=== PATIENT | female | born 1995 | race Caucasian/White ===

== ENCOUNTER 2024-03-26 19:18 | Inpatient (IN) ==
--- OUTSIDE RECORDS SUMMARY | 2024-03-26 19:23 | External Medical Summary | Summary of Care ---
Author Name Unknown Organization [facility] Address [address] [facility] [place] [address] Phone [phone] Care Team Providers Care Home Health Nurse Licensed Practical Name Role Phone Ashia Mtz MD Primary Care Provider Reason for Visit * Reason Comments Return Visit Encounter Details Date Type Department Care Team (Late st Contact Info) Description 03/25/2024 11:00 AM EDT Office Visit Gynecology/Obstetric s Adarsh Benitez [address] [place] [address] Greer Santamaria CRNP [address] [place] [address] High-risk in third trimester*; Family history of congenital hearing loss; Diet controlled gestational diabetes mellitus (GDM) in third trimester; Pre-eclampsia in third trimester Allergies Active Allergy Reactions Criticality Noted Date Comments Pollen Other (Please comment) High 04/15/2015 Itchy eyes, sneezing documented as of this encounter (statuses as of 03/25/2024) Medications Medication Sig Dispensed Refills Start Date End Date Status 6.75-0.2 MG Oral Tablet Take by mouth. Active OneTouch [place] Pak Expressio Flex System w/Device KitIndications:Di et controlled gestational diabetes mellitus (GDM) in third trimester Use to test blood sugars 4 times daily (fasting, 1 hour after breakfast, lunch, and dinner) 1 Kit 02/12/2024 Active Additional Information Patient not taking.Reported on 02/24/2024 OneTouch Verio In Vitro Strip (Glucose Blood)Indications :Diet controlled gestational diabetes mellitus (GDM) in third trimester Use to test blood sugars 4 times daily (fasting, 1 hour after breakfast, lunch, and dinner) 125 Strip 6 02/12/2024 Active Additional Information Patient not taking.Reported on 02/24/2024 OneTouch Delica Lancets 30GIndications:Di et controlled gestational diabetes mellitus (GDM) in third trimester Use to test blood sugars 4 times daily (fasting, 1 hour after breakfast, lunch, and dinner) 200 Each 6 02/12/2024 Active Additional Information Patient not taking.Reported on 02/24/2024 Blood Pressure KitIndications:El evated blood pressure reading Check twice a day. Call office if 160 or higher over 100 or higher (either number) 1 Kit 03/09/2024 Active NIFEdipine ER Osmotic Release 30 MG Oral Tablet Extended Release 24 Hour (Procardia XL) 03/23/2024 4 Discontinued documented as of this encounter (statuses as of 03/25/2024) Active Problems Problem Noted Date Diagnosed Date Preeclampsia 02/24/2024 Overview: 02/24/2024: Initial BP 144/98, repeat BP 138/88. Pre-eclampsia labs ordered. Reviewed pre-eclampsia warning signs. 03/09/24 BP 158/90, ruled in for gestational hypertension. +1 proteinuria, PreE labs ordered. Reviewed preE warning signs. Recommended MFM referral, pt "will think about it" Growth scan q4 wks, weekly labs, twice weekly NSTs, deliver 37 wks 03/11/24: pt declines twice weekly NSTs or weekly BPP, weekly labs, MFM referral preE diagnosed at [facility] L&D on 03/22 with elevated BP and +proteinuria, rx'd nifedipine Component Latest Ref Rng 03/09/2024 BUN 6 - 20 mg/dL 6 Creatinine 0.5 - 1.0 mg/dL 0.4 (L) Estimated Glomerular Filtration Rate >=60 mL/min >90 Sodium 135 - 146 mmol/L 136 Potassium 3.5 - 5.1 mmol/L 4.0 Chloride 98 - 107 mmol/L 103 CO2 22 - 32 mmol/L 19 (L) Anion Gap 7 - 15 mmol/L 14 Glucose 70 - 120 mg/dL 111 Albumin 3.8 - 5.0 g/dL 3.5 (L) AST 10 - 35 U/L 21 Alkaline Phosphatase 35 - 130 U/L 122 Bilirubin, Total <=1.2 mg/dL 0.5 Calcium 8.4 - 10.2 mg/dL 9.0 Protein 6.0 - 8.3 g/dL 5.7 (L) ALT 10 - 35 U/L 27 WBC 4.00 - 10.80 K/uL 9.21 RBC 3.85 - 5.15 M/uL 4.13 HGB 12.0 - 15.3 g/dL 12.4 HCT 36.0 - 45.2 % 36.4 MCV 81.5 - 97.5 fL 88.1 MCH 27.0 - 34.0 pg 30.0 MCHC 32.0 - 36.0 g/dL 34.1 RDW 11.5 - 15.5 % 13.1 PLT 140 - 400 K/uL 144 MPV 6.6 - 11.1 fL 13.2 Protein/ Creatinine Ratio, Urine <150 mg/g 196 (H) Protein, Random Urine mg/dL 36 Creatinine, Random Urine mg/dL 184 Legend: (L) Low (H) High GDM (gestational diabetes mellitus) 02/10/2024 Overview: Dx 29w - declines MFM referral, declines checking blood sugars A1c 03/09/24 - 5.4% Normal growth scan 33 wks High-risk 09/16/2023 Family history of congenital hearing loss 2022 Overview: Pt's niece and nephew Elevated blood pressure, situational 01/13/2022 Overview: While on estrogen containing OCP, resolved with switch to progesterone only Estimated Date of Delivery Comme nts Yes 04/27/2024 Based on Ultraso und documented as of this encounter (statuses as of 03/25/2024) Resolved Problems Problem Noted Date Diagnosed Date Resolved Date Non compliance with medical treatment 03/11/2024 03/25/2024 documented as of this encounter (statuses as of 03/25/2024) Immunizations Name Administration Dates Next Due HPV Vaccine, 4-Valent 07/13/2015,12/29/2014 HPV Vaccine, 9-Valent 09/25/2017 Meningococcal Conjugate Vaccine (Menactra/Menveo ) 12/29/2014,02/28/2009 PPD 07/22/2015,07/13/2015 Seasonal Influenza, PF, 6 M & above, IM , (FluLaval or Fluzone) 09/10/2020 TDAP (age 10 and older)(Boostrix) 02/01/2024, TDAP, Age 7 and older, IM (Adacel) 02/28/2009 Varicella Vaccine (Chicken Pox) 12/29/2014,04/21 documented as of this encounter Social History Tobacco Use Types Packs/Day Years Used Date Smoking Tobacco: Never Smokeless Tobacco: Never Alcohol Use Standard Drinks/Week Comments No 0 (1 standard drink = 0.6 oz pur e alcohol) PHQ-2 Answer Date Recorded PHQ Adult Total Score 0 02/01/2024 Hunger Vital Sign Answer Date Recorded Within the past 12 months, y ou worried that your food would run out before you got the money to buy more. Never true 12/07/19 24 Within the past 12 months, t he food you bought just didn't last and you didn't have money to get more. Never true 12/07/2023 [place] Depression Scale Answer Date Recorded [place] Depression Scale Total 3 02/01/2024 The thought of harming myself has occurred to me . Never 02/01/2024 Estimated Date of Delivery Comme nts Yes 04/27/2024 Based on Ultraso und Sex and Gender Information Value Date Recorded Sex Assigned at Female 09/02/2023 8:35 PM EST Gender Identity Female 09/02/2023 8:35 PM EST Sexual Orientation Straight 09/02/2023 8: 35 PM EST Job Start Date Occupation Industry Not on file Not on file Not on file documented as of this encounter Last Filed Vital Signs Vital Sign Reading Time Taken Comments Blood Pressure 158/98 03/25/2024 11:51 AM EDT Pulse - - Temperature - - Respiratory Rate - - Oxygen Saturation - - Inhaled Oxygen Concentration - - Weight 82.1 kg (181 lb) 03/25/2024 10:59 AM EDT Height - - Body Mass Index 33.11 02/01/2024 9:52 AM EDT documented in this encounter Progress Notes * Kathleen Martinez MED ASSIST - 03/25/2024 10:59 AM EDT 35w2d Denies vaginal bleeding/rom + movements + x1 contraction No concerns Rechecked patients BP to calibrate at home BP machine. 158/98 in office, 158/109 BP machine Told patient I would discuss BP recheck with LEAH Daniel Patient left office before able to discuss with provider. * Greer Santamaria CRNP - 03/25/2024 10:55 AM EDT 35w2d Seen on L&D on 03/22 with elevated home BPs (max systolic 166, max diastolic 106). Improved withprocardia, which was prescribed for daily use. Normal platelets and LFTs. Ruled in for pre-eclampsia with mild features based on +proteinuria in the hospital. Received 2 doses of betamethasone. While on L&D, OB physician recommended MFM consult and deliver at 37 weeks as long as she did not develop severe features. She had a normal growth scan and BPP 05/19 earlier this week. She is scheduled for a video visit with MFM next Thursday. Tearful today - has significant anxiety when coming for appointments, feels a lot is out of her control. We discussed her diagnoses and why the different testing/monitoring is advised, and the rationale behind the MFM consult. Reviewed that pre-eclampsia can become severe/eclampsia very quickly, com promising conditions for both mother and baby. Reviewed recommendation of delivery at 37 weeks, to decrease risks to both mother and baby (including eclampsia, stroke, hemorrhage, ). She is very hesitant to be induced, and would prefer expectant management if she and baby are stable. She is taking the Procardia - concerned that since it is also administered to prevent pre-term labor, it could prevent spontaneous labor. Discussed option of labetalol instead - would need more frequent dosing, but safe in . Would need to monitor growth, which is already being done. She plans to attend her remote MFM visit next week. She prefers a weekly BPP instead of twice weekly NSTs. Recommend twice weekly BP checks, weekly labs - will plan to repeat lab work at her visit early next week. Continue regular movement counts. Continue twice daily BP checks at home, and contact on- call provider with systolic readings >/=160, diastolic >/=100; new PERDUE, vision changes, epigastric pain, swelling; decreased FM, bleeding, ctx, LOF. Pt left office prior to this provider being made aware of her repeat BP. [place] Text sent to OB supervisor type disk quality control Dr Chandler, inquiring as to whether her medication dose should be increased. Per MD, switch to non-extended release 30 mg BID. See T/E for medication adjustment. LEAH Zimmerman documented in this encounter Plan of Treatment Upcoming Encounters Date Type Department Care Team (Late st Contact Info) Description 03/29/2024 2:30 PM EDT Office Visit Gynecology/Obstetrics [facility] [address] [place] [address] Greer Santamaria CRNP [address] [place] [address] 03/29/2024 2:45 PM EDT Telemedicine Directory Operator Obstetrics Maternal Medicine, [place] [address] [facility] [address] [place] [address] Eduardo Garcia CRNP [address] [facility] [address] [place] [address] 03/29/2024 3:30 PM EDT Imaging Radiology [facility] 2nd Floor, [place] [address] [place] [address] Scheduled Orders Name Type Priority Associated Diagnoses Orde r Schedule HEPATIC FUNCTION PANEL Lab Routine High-risk in third trimester Pre-eclampsia in third trimester Expected: 03/29/2024 (Approximate), Expires: 03/25/2025 CREATININE Lab Routine High-risk in third trimester Pre-eclampsia in third trimester Expected: 03/29/2024 (Approximate), Expires: 03/25/2025 CBC Lab Routine High-risk in third trimester Pre-eclampsia in third trimester Expected: 03/29/2024 (Approximate), Expires: 03/25/2025 US BPP W/O NON-STRESS TEST Medical Imaging Routine High-risk in third trimester Pre-eclampsia in third trimester Expected: 03/29/2024 (Approximate), Expires: 04/24/2025 Health Maintenance Due Date Last Done Comments COVID-19 Vaccine ( season) 2023 Influenza Vaccine (FLU shot) (Season Ended) 2024 09/10/2020 Depression Screening 01/31/2025 02/01/2024 GFR 03/22/2025 03/22/2024, 02/10, 02/24/2024 Pap Smear 09/16/2026 09/16/2023, 12/25/2020 DTaP,Tdap,and Td Vaccines (9 - Td or Tdap) 01/31/2034 02/01/2024, 09/10/2020, 02/28/2009, Additional history exists Hepatitis B Completed 03/16/1998, 10/12, 1997 MENINGOCOCCAL (MENACTRA/MENVEO) Completed 12/29/2014, 02/28/2009 GARDASIL-HPV IMMUNIZATION SERIES Completed 09/25/2017, 07/13/2015, 12/29/2014 Gonorrhea / Chlamydia Screen Discontinued 09/16/2023, 12/25/2020 Pneumococcal Vaccine: Pediatrics (0 to 5 Years) and At-Risk Patients (6 to 64 Years) Aged Out No longer eligible based on patient's age to complete this topic documented as of this encounter Medical Devices Not on filedocumented as of this encounter Procedures Procedure Name Priority Date/Time Associated Diagnosis Comments URINALYSIS, POINT OF CARE (ENTER/EDIT) Routine 03/25/2024 High-risk in third trimester Diet controlled gestational diabetes mellitus (GDM) in third trimester Pre-eclampsia in third trimester documented in this encounter Results * URINALYSIS, POINT OF CARE (ENTER/EDIT) (03/25/2024) Color, Urine Yellow Yellow or Light Yellow Clarity, Urine Clear Clear Glucose, Urine Negative Negative mg/dL Bilirubin, Urine Small Negative Ketone, Urine Negative Negative mg/dL Specific Cactus, Urine 1.030 1.003 - 1.030 Blood, Urine Trace-intact Negative pH, Urine 6.5 5.0 - 7.5 units Protein, Urine 100 Negative mg/dL Urobilinogen, Urine 0.2 0.2 - 1.0 mg/dL Nitrite, Urine Negative Negative Esterase, Urine Negative Negative Urine 03/25/2024 Greer LYNN LAB POINT O F CARE TEST ENTER/EDIT ORDERABLES documented in this encounter Visit Diagnoses Diagnosis High-risk in third trimester- Primary Family history of congenital hearing loss Family history of deafness or hearing loss Diet controlled gestational diabetes mellitus (GDM) in third trimester Pre-eclampsia in third trimester Mild or unspecified pre-eclampsia, antepartum documented in this encounter Care Teams Home Health Nurse Licensed Practical Relationship Specialty Start Date End Date Ashia Mtz MD [address] [place] [address] PCP - General Internal Medicine 01/13/22 documented as of this encounter
--- OUTSIDE RECORDS SUMMARY | 2024-03-26 19:23 | External Medical Summary | Summary of Care ---
Author Name Unknown Organization [facility] Address [address] [place] [address] Phone [phone] Care Team Providers Care Production Laborer Name Role Phone Ashia Mtz MD Primary Care Provider Reason for Visit * Reason Onset Date Comments Follow Up 03/25/2024 Encounter Details Date Type Department Care Team (Late st Contact Info) Description 03/25/2024 Telephone Gynecology/Obstetrics [facility] [address] [place] [address] BackGreer staton CRNP [address] [facility] [place] [address] Follow Up Allergies Active Allergy Reactions Criticality Noted Date Comments Pollen Other (Please comment) High 04/15/2015 Itchy eyes, sneezing documented as of this encounter (statuses as of 03/25/2024) Medications Medication Sig Dispensed Refills Start Date End Date Status 6.75-0.2 MG Oral Tablet Take by mouth. Active Optherionuch Verio Flex System w/Device KitIndications:D iet controlled gestational diabetes mellitus (GDM) in third trimester Use to test blood sugars 4 times daily (fasting, 1 hour after breakfast, lunch, and dinner) 1 Kit 02/12/2024 Active Additional Information Patient not taking.Reported on 02/24/2024 OneTouch Verio In Vitro Strip (Glucose Blood)Indication s:Diet controlled gestational diabetes mellitus (GDM) in third trimester Use to test blood sugars 4 times daily (fasting, 1 hour after breakfast, lunch, and dinner) 125 Strip 6 02/12/2024 Active Additional Information Patient not taking.Reported on 02/24/2024 SuzannaBassemjoy Henriquez Lancets 30GIndications:D iet controlled gestational diabetes mellitus (GDM) in third trimester Use to test blood sugars 4 times daily (fasting, 1 hour after breakfast, lunch, and dinner) 200 Each 6 02/12/2024 Active Additional Information Patient not taking.Reported on 02/24/2024 Blood Pressure KitIndications:E levated blood pressure reading Check twice a day. Call office if 160 or higher over 100 or higher (either number) 1 Kit 03/09/2024 Active NIFEdipine 10 MG Oral Capsule Take 3 Capsules by mouth in the morning and 3 Capsules before bedtime. 180 Capsule 03/25/2024 Active NIFEdipine ER Osmotic Release 30 MG Oral Tablet Extended Release 24 Hour (Procardia XL) 03/23/2024 03/25/20 24 Discontinued documented as of this encounter (statuses [...] labs, MFM referral preE diagnosed at [facility] L&D on 03/22 with elevated BP [...] money to get more. Never true 12/07/2023 [place] Depression Scale Answer Date Recorded [place] Depression Scale Total 3 02/01/2024 The thought [...] on file documented as of this encounter Miscellaneous Notes * Telephone Encounter - Greer Santamaria CRNP - 03/25/2024 12:24 PM EDT Pt returned call; discussed recommendation for BID dosing of procardia. Rx to pharmacy, pt agreeable. Encouraged to contact the office with any new concerns. LEAH Zimmerman * Telephone Encounter - Greer Santamaria CRNP - 03/25/2024 12:21 PM EDT Called pt to discuss adjustment to medication, no answer. Left generic VM on voicemail with triage phone # and notified that I would also send her a Hive guard unlimited message. LEAH Zimmerman documented in this encounter Plan of Treatment Upcoming Encounters Date Type Department Care Team (Late st Contact Info) Description 03/29/2024 2:30 PM EDT Office Visit Gynecology/Obstetrics [facility] [address] [facility] [place] [address] Greer Santamaria CRNP [address] [facility] [place] [address] 03/29/2024 2:45 PM EDT Telemedicine Fine Chemicals Operator Obstetrics Maternal Medicine, [place] [address] [facility] [address] [place] [address] Eduardo Garcia CRNP [address] [facility] [address] [place] [address] 03/29/2024 3:30 PM EDT Imaging Radiology [facility] [address] [facility] [place] [address] Health Maintenance Due Date Last Done Comments COVID-19 Vaccine (2022- season) 2023 Influenza Vaccine (FLU shot) (Season [...] Not on filedocumented as of this encounter Care Teams Production Laborer Relationship Specialty Start Date End Date Ashia Mtz MD [address] [place] [address] PCP - General Internal Medicine 01/13/22 documented as of this encounter
--- OUTSIDE RECORDS SUMMARY | 2024-03-26 19:24 | External Medical Summary | Summary of Care ---
Author Name Unknown Organization [facility] Address [address] [facility] [place] [address] Phone [phone] Care Team Providers Care Scheduling Specialist Name Role Phone Ashia Mtz MD Primary Care Provider Encounter Details Date Type Department Care Team (Late st Contact Info) Description 03/24/2024 Orders Only Gynecology/Obstetrics [facility] [address] [place] [address] BackGreer staton CRNP [address] [place] [address] Allergies Active Allergy Reactions Criticality Noted Date Comments Pollen Other (Please comment) High 04/15/2015 Itchy eyes, sneezing documented as of this encounter (statuses as of 03/24/2024) Medications Medication Sig Dispensed Refills Start Date End Date Status 6.75-0.2 MG Oral Tablet Take by mouth. Active OneTouch Verio Flex System w/Device KitIndications:Diet controlled gestational diabetes mellitus (GDM) in third trimester Use to test blood sugars 4 times daily (fasting, 1 hour after breakfast, lunch, and dinner) 1 Kit 02/12/2024 Active Additional Information Patient not taking.Reported on 02/24/2024 OneTouch Verio In Vitro Strip (Glucose Blood)Indications:D iet controlled gestational diabetes mellitus (GDM) in third trimester Use to test blood sugars 4 times daily (fasting, 1 hour after breakfast, lunch, and dinner) 125 Strip 6 02/12/2024 Active Additional Information Patient not taking.Reported on 02/24/2024 SuzannaShraavn Henriquez Lancets 30GIndications:Diet controlled gestational diabetes mellitus (GDM) in third trimester Use to test blood sugars 4 times daily (fasting, 1 hour after breakfast, lunch, and dinner) 200 Each 6 02/12/2024 Active Additional Information Patient not taking.Reported on 02/24/2024 Blood Pressure KitIndications:Elev ated blood pressure reading Check twice a day. Call office if 160 or higher over 100 or higher (either number) 1 Kit 03/09/2024 Active documented as of this encounter (statuses as of 03/24/2024) Active Problems Problem Noted Date Diagnosed Date Non compliance with medical treatment 03/11/2024 Gestational hypertension 02/24/2024 Overview: 02/24/2024: Initial BP 144/98, repeat [...] or weekly BPP, weekly labs, MFM referral Component Latest Ref Rng 03/09/2024 BUN 6 [...] as of this encounter (statuses as of 03/24/2024) Immunizations Name Administration Dates Next Due HPV [...] money to get more. Never true 12/07/2023 [place] Depression Scale Answer Date Recorded [place] Depression Scale Total 3 02/01/2024 The thought [...] on file documented as of this encounter Plan of Treatment Upcoming Encounters Date Type Department Care Team (Late st Contact Info) Description 03/25/2024 11:15 AM EDT Office Visit Gynecology/Obstetrics [facility] [address] [place] [address] Greer Santamaria CRNP [address] [facility] [place] [address] 03/29/2024 2:45 PM EDT Telemedicine Sap Administrator Obstetrics Maternal Medicine, [place] [address] [facility] [address] [place] [address] Eduardo Garcia CRNP [address] [facility] [address] [place] [address] Health Maintenance Due Date Last Done Comments [...] Procedure Name Priority Date/Time Associated Diagnosis Comments HEPATITIS C ANTIBODY Routine 03/22/2024 documented in this encounter Results * HEPATITIS C ANTIBODY (03/22/2024) Blood Venous blood specimen / Unknown 03/22/2024 History Per Patient LAB BLOOD ORDERABLES OUTSIDE LAB (SEE SCANNED REPORT) documented in this encounter Care Teams Scheduling Specialist Relationship Specialty Start Date End Date Ashia Mtz MD [address] [place] [address] PCP - General Internal Medicine 01/13/22 documented as of this encounter
--- OUTSIDE RECORDS SUMMARY | 2024-03-26 19:24 | External Medical Summary | Summary of Care ---
Author Name Unknown Organization [facility] Address [address] [place] [address] Phone [phone] Care Team Providers Care Group Tester Name Role Phone Ashia Mtz MD Primary Care Provider Reason for Referral * Evaluate & Treat - Unlimited Visits (Within 3 days (urgent)) - Authorized Specialty Diagnoses / Procedures Referred By Alexa vickers Referred To Contact Obstetrics/Gynecology / Maternal Medicine Diagnoses Pre-eclampsia in third trimester Diet controlled gestational diabetes mellitus (GDM) in third trimester High-risk in third trimester Gestational hypertension, third trimester Greer Santamaria CRNP [address] [place] [address] Referral ID Status Reason Start Date Expiration Date Visits Requested Visits Authorized [id number] Authorized Specialty Services Required 03/24/2024 999 999 Question Answer Referral Priority Within 3 days (urgent) Has the patient had a viability scan? Yes Date performed 2023 Location performed Radiology Reason for referral Diabetes, Hypertension Diabetes type Gestational Hypertension type Gestational, Pre-eclampsia Where should this appointment be scheduled? [facility] Comments /Para: LMP: Patient's last menstrual period was 07/16/2023. Patient is . NEELAM: 04/27/2024, by Ultrasound Pre-Gravid BMI: 28.34 Reason for Visit * Reason Onset Date Comments Follow Up 03/24/2024 Encounter Details Date Type Department Care Team (Late st Contact Info) Description 03/24/2024 Telephone Gynecology/Obstetrics Adarsh Benitez [address] [place] [address] Back[place], LEAH Segovia [address] [place] [address] Follow Up Allergies Active Allergy Reactions Criticality [...] not taking.Reported on 02/24/2024 OneTouch Delica Lancets 30GIndications:Diet controlled gestational diabetes mellitus (GDM) [...] MFM referral, declines checking blood sugars A1c 05/29/24 - 5.4% Normal growth scan 33 wks [...] money to get more. Never true 12/07/2023 [place] Depression Scale Answer Date Recorded [place] Depression Scale Total 3 02/01/2024 The thought [...] Telephone Encounter - Greer Santamaria CRNP - 03/24/2024 8:18 AM EDT Received L&D notes from 03/22, pt there with elevated BPs which responded to Procardia. Elevatedp/c ratio and was diagnosed with pre-eclampsia with mild features. Plans follow up appt in office tomorrow. Dr Durbin recommended MFM consult, which I agree with. I am placing this referral. Would advise thatshe at the very least consider attending telemed visit with them. I have to order the MFM U/S to place the referral. LEAH Zimmerman documented in this encounter Plan of Treatment Upcoming Encounters Date Type Department Care Team (Late st Contact Info) Description 03/25/2024 11:15 AM EDT Office Visit Gynecology/Obstetrics [facility] [address] [place] [address] Greer Santamaria CRNP [address] [place] [address] 03/29/2024 2:45 PM EDT Telemedicine Avionics Systems Engineer Obstetrics Maternal Medicine, [place] [address] [facility] [address] [place] [address] Eduardo Garcia CRNP [address] [facility] [address] [place] [address] Scheduled Orders Name Type Priority Associated Diagnoses Orde r Schedule MFM US MATERNAL 1ST FETUS Medical Imaging Routine Pre-eclampsia in third trimester Diet controlled gestational diabetes mellitus (GDM) in third trimester High-risk in third trimester Gestational hypertension, third trimester Other specified related conditions, third trimester Expected: 03/24/2024, Expires: 04/23/2025 Scheduled Referrals Name Type Priority Associated Diagnoses Orde r Schedule MATERNAL MEDICINE REFERRAL OP Referral Within 3 days (urgent) Pre-eclampsia in third trimester Diet controlled gestational diabetes mellitus (GDM) in third trimester High-risk in third trimester Gestational hypertension, third trimester Ordered: 03/24/2024 Health Maintenance Due Date Last Done Comments [...] Not on filedocumented as of this encounter Visit Diagnoses Diagnosis Pre-eclampsia in third trimester- Primary Mild or unspecified pre-eclampsia, antepartum Diet controlled gestational diabetes mellitus (GDM) in third trimester High-risk in third trimester Gestational hypertension, third trimester Other specified related conditions, third trimester documented in this encounter Care Teams Group Tester Relationship Specialty Start Date End Date Ashia Mtz MD [address] [place] [address] PCP - General Internal Medicine 01/13/22 documented as of this encounter
--- OUTSIDE RECORDS SUMMARY | 2024-03-26 19:24 | External Medical Summary | Summary of Care ---
Author Name Unknown Organization [facility] Address [address] [place] [place] [place] [address] Phone [phone] Care Team Providers Care Hotel Front Desk Agent Name Role Phone Ashia Mtz MD Primary Care Provider Encounter Details Date Type Department Care Team (Late st Contact Info) Description 03/24/2024 Orders Only Gynecology/Obstetrics [facility] [address] [place] [address] BackGreer staton CRNP [address] [place] [address] Allergies Active Allergy Reactions Criticality Noted Date [...] Additional Information Patient not taking.Reported on 02/24/2024 SuzannaShravan Henriquez Lancets 30GIndications:Diet controlled gestational diabetes mellitus [...] money to get more. Never true 12/07/2023 [place] Depression Scale Answer Date Recorded [place] Depression Scale Total 3 02/01/2024 The thought [...] 03/25/2024 11:15 AM EDT Office Visit Gynecology/Obstetrics [facility] [address] [place] [address] Greer Santamaria CRNP [address] [facility] [place] [address] 03/29/2024 2:45 PM EDT Telemedicine Traffic Recorder Obstetrics Maternal Medicine, [place] [address] [facility] [address] [place] [address] Eduardo Garcia CRNP [address] [facility] [address] [place] [address] Health Maintenance Due Date Last Done Comments [...] Procedure Name Priority Date/Time Associated Diagnosis Comments HIV ANTIGEN & ANTIBODY SCREEN W/ CONFIRMATION Routine 02/20/2024 documented in this encounter Results * HIV ANTIGEN & ANTIBODY SCREEN W/ CONFIRMATION (02/20/2024) Blood Venous blood specimen / Unknown 02/20/2024 Mehul Durbin MD LAB BLOOD ORDERABLES OUTSIDE LAB (SEE SCANNED REPORT) documented in this encounter Care Teams Hotel Front Desk Agent Relationship Specialty Start Date End Date Ashia Mtz MD [address] [place] [address] PCP - General Internal Medicine 01/13/22 documented as of this encounter
[2024-03-26] MEDS: LACTATED RINGER'S 1,000 ML IV SCH (19:38)
[2024-03-26] MEDS: hydrALAZINE HCL 20 MG/ML VIAL IV STA (20:06)
--- NOTE | 2024-03-26 20:17 | Anesthesiology Consultation ---
Date of Service March 26, 2024 Assessment & Plan Chart Review Chart Review: Acceptable Risk for Surgery and Patient NOT seen in Pre Admission Testing Consults Requested none ASA [id number] Proposed Anesthesia Anesthesia Type: Spinal Risk / Benefits Reviewed With: PT / POA / Parent / Guardian, Accepts Plan and Informed Consent Obtained History Surgery Operation Date: 03/26/24 19:50 Proposed Procedures p Section in LD - Mehul Durbin MD Height/Weight Height: 5 ft 2 in Weight: 86.636 kg Allergies Allergy/AdvReac Type Severity Reaction Status Date / Time No Known Allergies Allergy Unverified 03/22/24 17:39 Medications Home Medications Medication Instructions Recorded Confirmed Last Taken aspirin 81 mg chewable tablet 81 mg PO DAILY 03/22/24 03/26/24 03/26/24 14:00 nifedipine 30 mg tablet,extended 30 mg PO DAILY #14 tabs 03/22/24 03/26/24 03/25/24 22:00 release 24 hr (Procardia XL) vits no.124-ferrous fum 1 tab PO DAILY 03/22/24 03/26/24 03/25/24 22:00 27 mg iron-folic acid 800 mcg tablet ( Vitamin) Active Medications Generic Name Dose Route Start Last Admin Trade Name Freq PRN Reason Stop Dose Admin Cefazolin Sodium 2,000 mg in 15 mls @ 3.75 mls/min 03/26/24 20:00 03/26/24 20:20 Ancef 2000mg IV 03/26/24 21:00 3.75 mls/min PREOP SHELTON Administration Protocol NPO Date Last Intake of Fluids: 03/26/24 Time Last Intake of Fluids: 18:30 Date Last Intake of Solids: 03/26/24 Time Last Intake of Solids: 17:30 Past Medical History Medical History Congenital hearing loss Family history Gestational hypertension Gestational hypertension Gestational diabetes Exercise / Class Metabolic Activity 1 > 8 Run/Swim/Ski/Tennis Past Family History Family History Other No known health problems Past Surgical History Surgical History [place] teeth removed Past Anesthesia History No Hx of Anesthesia Complications and No Family Hx of Anesthesia Complications History of PONV No Hx of PONV and No Hx of Motion Sickness Social History tobacco type: pipe Hx Alcohol Use: No Hx Substance Use: No Review of Systems ROS Unobtainable: All systems reviewed & are unremarkable except as noted in HPI & below Physical Exam Vital Signs Last Vital Signs Temp 36.9 C 03/26/24 19:42 Pulse 126 H 03/26/24 20:07 Resp 18 03/26/24 19:42 BP 161/98 H 03/26/24 20:07 ENMT Mouth: no TMJ abnormality Thyromental Distance: > or= 3.5 Finger Breadths Mallampati Class: III Neck normal visual inspection and trachea midline; neck extension not limited Respiratory normal respiratory effort Auscultation: lungs clear to auscultation bilaterally Cardiovascular Rate/Rhythm: regular rate and regular rhythm Heart Sounds: no murmur Musculoskeletal Spine: normal cervical ROM Extremities: full ROM of extremities Neurologic moves all extremities Psychiatric Orientation: alert and oriented x 3
[2024-03-26] MEDS: ceFAZolin 2000MG 2,000 MG/15 ML SYR IV SCH (20:20)
[2024-03-26] MEDS ORDERED: MoRPHine SULFATE PF 1 MG/ML 10 ML AMP/VIAL ONE (20:21)
[2024-03-26] MEDS ORDERED: fentaNYL citrate PF 100 MCG/2 ML VIAL ONE (20:21)
[2024-03-26 20:25] LABS: Basophils # (auto) 0.04 K/uL (0.00-0.20); Basophils % (auto) 0.4 %; Eosinophils # (auto) 0.05 K/uL (0.00-0.50); Eosinophils % (auto) 0.5 %; Hematocrit (blood only) 31.8 % (37.0-47.0); Immature Granulocytes # (auto) 0.11 K/uL (0.01-0.20); Immature Granulocytes % (auto) 1.1 %; Lymphocytes # (auto) 2.17 K/uL (1.20-3.40); Lymphocytes % (auto) 21.6 %; Mean Corpuscular Hemoglobin 29.9 pg (25.0-34.0); Mean Corpuscular Hgb Conc 34.6 g/dL (32.0-36.0); Mean Corpuscular Volume 86.4 fL (80.0-100.0); Mean Platelet Volume 13.1 fL (9.4-12.4); Monocytes # (auto) 1.17 K/uL (0.11-0.59); Monocytes % (auto) 11.6 %; Neutrophils # (auto) 6.51 K/uL (1.40-6.50); Neutrophils % (auto) 64.8 %; Platelet Count 184 K/uL (130-400); RDW Coefficient of Variation 12.8 % (11.5-14.5); RDW Standard Deviation 39.8 fL (36.4-46.3); Red Blood Count 3.68 M/uL (4.20-5.40); White Blood Count 10.05 K/ul (4.8-10.8)
[2024-03-26] MEDS: CITRIC ACID/SODIUM CITRATE 15 ML UDC ONE (20:48)
[2024-03-26 20:50] LABS: Fibrinogen 298 mg/dl (184-400); INR 0.9 (0.9-1.1); Prothrombin Time 10.2 Seconds (9.0-12.0)
[2024-03-26] MEDS ORDERED: ePHEDrine sulfate 50 MG/ML AMP IV PRN (20:52)
[2024-03-26] MEDS ORDERED: NALBUPHINE HCL 5 MG in SYRINGE 0 ML IV PRN (20:52)
[2024-03-26] MEDS ORDERED: HYDROmorphone INJ 0.5 MG/0.5 ML SYR IV PRN (20:52)
[2024-03-26] MEDS ORDERED: NALOXONE HCL 1 MG in SODIUM CHLORIDE 0.9% 1,000 ML IV PRN (20:52)
[2024-03-26] MEDS ORDERED: LACTATED RINGER'S 500 ML IV PRN (20:52)
[2024-03-26] MEDS ORDERED: DROPERIDOL 5 MG/2 ML VIAL IV PRN (20:52)
[2024-03-26] MEDS ORDERED: ONDANSETRON INJ 2 MG/ML 2 ML VIAL IV PRN (20:52)
[2024-03-26] MEDS ORDERED: NALOXONE HCL 0.08 MG in SYRINGE 1.8 ML IV PRN (20:52)
[2024-03-26] MEDS ORDERED: PROMETHAZINE HCL 6.25 MG in SODIUM CHLORIDE 0.9% 50 ML IV PRN (20:52)
[2024-03-26] MEDS ORDERED: NALOXONE HCL 0.4 MG/1 ML VIAL/CARP IV PRN (20:52)
[2024-03-26] MEDS ORDERED: diphenhydrAMINE 50 MG/ML VIAL IV PRN (20:52)
[2024-03-26] MEDS ORDERED: MEPERIDINE HCL 25 MG/ML CARP/VIAL IV PRN (20:52)
[2024-03-26] MEDS ORDERED: METOCLOPRAMIDE HCL 20 MG in SODIUM CHLORIDE 0.9% 50 ML IV PRN (20:52)
[2024-03-26] MEDS ORDERED: NO NARCOTICS OR SEDATIVES SCH (21:00)
[2024-03-26] MEDS ORDERED: DC INTRASPINAL MORPHINE SCH (21:00)
[2024-03-26] MEDS ORDERED: KETOROLAC 30 MG/ML VIAL ONE (21:07)
[2024-03-26] MEDS ORDERED: ePHEDrine sulfate 50 MG/5 ML SYR ONE (21:07)
[2024-03-26] MEDS ORDERED: PHENYLEPHRINE 100MCG/ML 10ML SYR IV ONE (21:07)
[2024-03-26] MEDS ORDERED: GLYCOPYRROLATE 0.2 MG/ML VIAL ONE (21:07)
[2024-03-26] MEDS ORDERED: ONDANSETRON INJ 2 MG/ML 2 ML VIAL ONE ×2 (21:07)
[2024-03-26] MEDS ORDERED: DEXAMETHASONE SOD INJ 4 MG/ML VIAL ONE (21:07)
[2024-03-26] MEDS ORDERED: OXYTOCIN 10 UNITS/ML VIAL ONE (21:07)
[2024-03-26] MEDS ORDERED: HYDROCORTISONE ACETATE 25 MG SUPP PR PRN (21:44)
[2024-03-26] MEDS ORDERED: SENNA 8.6 MG TAB PO PRN (21:44)
[2024-03-26] MEDS ORDERED: MAGNESIUM HYDROXIDE SUSP 30 ML UDC PO PRN (21:44)
[2024-03-26] MEDS ORDERED: BENZOCAINE 20% SPRY 85 APPLN/85 GM CAN EXT PRN (21:44)
[2024-03-26 21:45] LABS: Cord Venous Blood PCO2 90 mmHg (30.4-57.2); Cord Venous Blood PO2 < 20 mmHg (14.1-43.3); Cord Venous Blood pH < 7.00 (7.20-7.44); O2 Saturation Cord Venous Bld < 60.0 % (<68)
--- NOTE | 2024-03-26 21:54 | Operative Report ---
Post Operative Report Pre & Post Diagnosis Operation Date: 03/26/24 19:50 <No data on this case meets the specified criteria> I identified the patient and participated in the time-out.: Yes Procedure section Operation Date: 03/26/24 19:50 <No data on this case meets the specified criteria> Surgeon Mehul Durbin MD Biology Instructor Renata Hebert RN Estimated Blood Loss 917 Findings Consistent with Post-Op Diagnosis Bleeding from the vagina unchanged prior to section. Hysterotomy showed abruption of the placenta. Cord gases are obtained. Inspection of the uterus showed [place] a uterus. Ovaries and tubes and rest of the abdominal pelvic exam was unremarkable. Fluids IVF; 2100Ml Urine 100ml QBL; 917ml Specimens placenta and cord gasses Drains none Anesthesia Type Spinal Complications none Indications preeclampsia placenta abruption Description of Procedure Patient brought to the operating room Prepped and draped in normal sterile fashion in dorsal supine position with a leftward tilt. Time out is performed. Patient is identified by name and date of . Allergy and antibiotics and reviewed and confirmed. Skin check is performed to see if anesthesia is adequate A Pfannenstiel incision is made and carried out to the fascia with a scalpel. Fascia is incised in the midline extended laterally on both sides with Solis scissors. Rochelle's were used to grab the superior part of the fascial incision and the rectus abdominis muscle dissected with Solis scissors.. Same procedure was performed on the lower section of the fascia. The rectus muscle is then in the midline and the peritoneum identified, tented up and entered sharply with the Metzenbaum scissors. The peritoneal incision was then extended superiorly and inferiorly with good visualization of the bladder. An Khris retractor was then inserted to provide better visualization and retraction. Vesicouterine peritoneum was identified, grasped with pickups and entered sharply with Metzenbaum scissors. The incision was then extended laterally and the bladder flap created with Metzenbaum scissors. The lower uterine segment incision was performed in a transverse fashion with a scalpel. Uterine incision was then extended laterally with the bandage scissors. Amniotomy is performed. Amniotic fluid is clear. The infant's head was delivered atraumatically. There is no nuchal cord which is easily reduced Nose and mouth suctioned with the bulb suction. Immediate cord clamping is performed and is handed over to the waiting pediatric team. Cord blood and gases obtained The placenta is then removed manually the uterus is exteriorized and cleared of all clots and debris. Uterine incision it repaired with 0-Vicryl in a locking fashion. A second layer of 0-Vicryl is used to obtain excellent hemostasis. Uterus is placed back into the abdominal cavity. The bladder flap was repaired in a running fashion with plain suture. Copious amount of irrigation was used to irrigate the abdomen. Gutters were cleared of all clots and debris . Hemostasis was obtained. The Khris retractor is removed as well as sponges or instruments in the abdomen. The peritoneum was identified and closed in a running fashion using plain suture. The rectus abdominis muscle was examined to ensure there no bleeding. The rectus abdominis muscle was approximated loosely using plain suture in a [id number] manner. Once again hemostasis is confirmed. The fascia was grasped with Trisha's and closed in a running fashion. Both fascial layers are closed together using 0-Vicryl suture. Subcutaneous space is irrigated and hemostasis was confirmed. Subcutaneous space is approximated with plain suture. Skin is closed with mary alice. The patient tolerated procedure well sponge just labs needle counts were correct x2 patient is sent to recovery in stable condition I attest to the content of the Intraoperative Record and any orders documented therein. Any exceptions are noted below. Biology Instructor was necessary for retraction and manipulation of instruments in order to provide for a safe operation
[2024-03-26] MEDS: OXYTOCIN 30 UNITS/LR 1,003 ML IV SCH (23:50)
[2024-03-27] MEDS: miSOPROStoL 200 MCG TAB ONE (00:23)
--- NOTE | 2024-03-27 01:54 | Anesthesiology Progress Note ---
Date of Service March 27, 2024 Anesthesia Post Procedure Vital Signs Vital Signs: Temp Pulse Pulse Resp BP BP Pulse Ox 03/27/24 01:00 18 95 03/27/24 01:00 86 18 147/88 H 95 03/26/24 23:45 105 H 98 03/26/24 23:41 88 156/86 H 03/26/24 23:40 36.7 C 94 H 20 156/86 H 97 03/26/24 23:40 18 97 03/26/24 23:40 20 03/26/24 23:40 101 H 90 03/26/24 23:39 102 H 94 03/26/24 23:35 101 H 98 03/26/24 23:33 89 149/79 H 03/26/24 23:30 99 H 97 03/26/24 23:25 94 H 96 03/26/24 23:24 98 H 93 03/26/24 23:20 95 H 97 03/26/24 23:19 97 H 93 03/26/24 23:15 96 H 96 03/26/24 23:13 85 141/81 H 03/26/24 23:10 20 03/26/24 23:10 98 H 94 03/26/24 23:05 99 H 98 03/26/24 23:00 109 H 94 03/26/24 22:59 110 H 94 03/26/24 22:55 95 H 99 03/26/24 22:53 108 H 90 03/26/24 22:50 99 H 03/26/24 22:50 94 H 145/90 H 98 03/26/24 22:47 101 H 90 03/26/24 22:45 101 H 97 03/26/24 22:42 93 H 88 L 03/26/24 22:40 36.8 C 18 03/26/24 22:40 36.8 C 18 97 03/26/24 22:40 85 141/74 H 03/26/24 22:39 95 H 98 03/26/24 22:34 94 H 100 03/26/24 22:30 78 159/75 H 03/26/24 22:29 95 H 98 03/26/24 22:28 104 H 88 L 03/26/24 22:25 18 95 03/26/24 22:24 92 H 97 03/26/24 22:23 96 H 89 L 03/26/24 22:20 76 140/60 03/26/24 22:19 96 H 100 03/26/24 22:17 89 92 03/26/24 22:15 83 148/66 H 03/26/24 22:14 80 100 03/26/24 22:11 93 H 92 03/26/24 22:10 18 03/26/24 22:09 96 H 100 03/26/24 22:04 93 H 100 03/26/24 21:59 89 88 L 03/26/24 21:57 75 120/56 L 03/26/24 21:55 20 03/26/24 21:54 108 H 99 03/26/24 21:51 95 H 90 03/26/24 21:49 92 H 94 03/26/24 21:46 98 H 89 L 03/26/24 21:44 86 99 03/26/24 21:40 36.4 C L 18 03/26/24 21:40 89 115/66 03/26/24 20:22 102 H 142/67 H 03/26/24 20:14 101 H 159/91 H 03/26/24 20:07 126 H 161/98 H 03/26/24 19:55 113 H 173/98 H 03/26/24 19:42 36.9 C 115 H 18 190/108 H 03/26/24 19:29 115 H 190/108 H 03/26/24 19:28 114 H 183/109 H O2 Del Method 03/27/24 01:00 03/27/24 01:00 Room Air 03/26/24 23:45 03/26/24 23:41 03/26/24 23:40 Room Air 03/26/24 23:40 03/26/24 23:40 03/26/24 23:40 03/26/24 23:39 03/26/24 23:35 03/26/24 23:33 03/26/24 23:30 03/26/24 23:25 03/26/24 23:24 03/26/24 23:20 03/26/24 23:19 03/26/24 23:15 03/26/24 23:13 03/26/24 23:10 03/26/24 23:10 03/26/24 23:05 03/26/24 23:00 03/26/24 22:59 03/26/24 22:55 03/26/24 22:53 03/26/24 22:50 03/26/24 22:50 03/26/24 22:47 03/26/24 22:45 03/26/24 22:42 03/26/24 22:40 03/26/24 22:40 Room Air 03/26/24 22:40 03/26/24 22:39 03/26/24 22:34 03/26/24 22:30 03/26/24 22:29 03/26/24 22:28 03/26/24 22:25 Room Air 03/26/24 22:24 03/26/24 22:23 03/26/24 22:20 03/26/24 22:19 03/26/24 22:17 03/26/24 22:15 03/26/24 22:14 03/26/24 22:11 03/26/24 22:10 03/26/24 22:09 03/26/24 22:04 03/26/24 21:59 03/26/24 21:57 03/26/24 21:55 03/26/24 21:54 03/26/24 21:51 03/26/24 21:49 03/26/24 21:46 03/26/24 21:44 03/26/24 21:40 Room Air 03/26/24 21:40 03/26/24 20:22 03/26/24 20:14 03/26/24 20:07 03/26/24 19:55 03/26/24 19:42 03/26/24 19:29 03/26/24 19:28 Transfer of Care Handoff Completed per policy Notes Mental Status: alert / awake / arousable Patient Amnestic to Procedure: Yes Nausea / Vomiting: adequately controlled Pain: adequately controlled Airway Patency, RR, SpO2: stable & adequate BP & HR: stable & adequate Hydration State: stable & adequate Neuraxial Anesthesia: was administered and sensory block is resolving Anesthetic Complications: no major complications apparent and Pt Satisfied with anesthetic care
[2024-03-27 06:45] LABS: Hematocrit (blood only) 21.7 % (37.0-47.0); Hemoglobin 7.5 g/dl (12.0-16.0); Mean Corpuscular Hemoglobin 29.8 pg (25.0-34.0); Mean Corpuscular Hgb Conc 34.6 g/dL (32.0-36.0); Mean Corpuscular Volume 86.1 fL (80.0-100.0); Mean Platelet Volume 12.6 fL (9.4-12.4); Platelet Count 123 K/uL (130-400); RDW Coefficient of Variation 12.3 % (11.5-14.5); RDW Standard Deviation 38.7 fL (36.4-46.3); Red Blood Count 2.52 M/uL (4.20-5.40); White Blood Count 17.12 K/ul (4.8-10.8)
[2024-03-27 06:57] LABS: Basophils # (auto) 0.02 K/uL (0.00-0.20); Basophils % (auto) 0.1 %; Eosinophils # (auto) 0.01 K/uL (0.00-0.50); Eosinophils % (auto) 0.1 %; Immature Granulocytes # (auto) 0.14 K/uL (0.01-0.20); Immature Granulocytes % (auto) 0.8 %; Lymphocytes # (auto) 1.31 K/uL (1.20-3.40); Lymphocytes % (auto) 7.7 %; Monocytes # (auto) 1.19 K/uL (0.11-0.59); Neutrophils # (auto) 14.45 K/uL (1.40-6.50); Neutrophils % (auto) 84.3 %; Polychromasia 1+
[2024-03-27] MEDS: DIPHTHER/TETAN/PERTUS Vaccine (Tdap, Adol/Adult) 0.5mL IM ONE (07:57)
--- NOTE | 2024-03-27 08:57 | Obstetrical Progress Note ---
Date of Service March 27, 2024 Assessment & Plan Admission and Anticipated Discharge Date Admission Date: March 26, 2024 Subjective Late note entry Is a 28-year-old 35+gestation who presented on 03/26/2024 with heavy vaginal bleeding. Patient reports she was outside with her spouse and began to experience heavy bleeding. Patient was a known preeclamptic on antihypertensives. On arrival to labor delivery, she had heavy vaginal bleeding which had soaked through her clothing and was immediately admitted. 2 IV's were placed and speculum exam done showed about moderate amount of blood in the vagina. The cervix was thick and about 1 cm dilated. A diagnosis of suspected abruption was made. This was discussed with patient,consent was signed and patient was prepared for urgent section. Results & Data Vital Signs (Past 12 Hours) Vital Signs Temp Pulse Pulse Resp BP BP Pulse Ox 03/27/24 07:22 36.9 C 91 H 16 145/59 H 97 03/27/24 06:00 18 96 03/27/24 05:00 18 96 03/27/24 04:00 18 96 03/27/24 03:30 18 95 03/27/24 03:30 37.2 C 88 18 147/90 H 95 03/27/24 02:20 18 95 03/27/24 01:00 18 95 03/27/24 01:00 86 18 147/88 H 95 03/27/24 00:40 18 95 03/26/24 23:45 105 H 98 03/26/24 23:41 88 156/86 H 03/26/24 23:40 36.7 C 94 H 20 156/86 H 97 03/26/24 23:40 18 97 03/26/24 23:40 20 03/26/24 23:40 101 H 90 03/26/24 23:39 102 H 94 03/26/24 23:35 101 H 98 03/26/24 23:33 89 149/79 H 03/26/24 23:30 99 H 97 03/26/24 23:25 94 H 96 03/26/24 23:24 98 H 93 03/26/24 23:20 95 H 97 03/26/24 23:19 97 H 93 03/26/24 23:15 96 H 96 03/26/24 23:13 85 141/81 H 03/26/24 23:10 20 03/26/24 23:10 98 H 94 03/26/24 23:05 99 H 98 03/26/24 23:00 109 H 94 03/26/24 22:59 110 H 94 03/26/24 22:55 95 H 99 03/26/24 22:53 108 H 90 03/26/24 22:50 99 H 03/26/24 22:50 94 H 145/90 H 98 03/26/24 22:47 101 H 90 03/26/24 22:45 101 H 97 03/26/24 22:42 93 H 88 L 03/26/24 22:40 36.8 C 18 03/26/24 22:40 36.8 C 18 97 03/26/24 22:40 85 141/74 H 03/26/24 22:39 95 H 98 03/26/24 22:34 94 H 100 03/26/24 22:30 78 159/75 H 03/26/24 22:29 95 H 98 03/26/24 22:28 104 H 88 L 03/26/24 22:25 18 95 03/26/24 22:24 92 H 97 03/26/24 22:23 96 H 89 L 03/26/24 22:20 76 140/60 03/26/24 22:19 96 H 100 03/26/24 22:17 89 92 03/26/24 22:15 83 148/66 H 03/26/24 22:14 80 100 03/26/24 22:11 93 H 92 03/26/24 22:10 18 03/26/24 22:09 96 H 100 03/26/24 22:04 93 H 100 03/26/24 21:59 89 88 L 03/26/24 21:57 75 120/56 L 03/26/24 21:55 20 03/26/24 21:54 108 H 99 03/26/24 21:51 95 H 90 03/26/24 21:49 92 H 94 03/26/24 21:46 98 H 89 L 03/26/24 21:44 86 99 03/26/24 21:40 36.4 C L 18 03/26/24 21:40 89 115/66 O2 Del Method 03/27/24 07:22 Room Air 03/27/24 06:00 03/27/24 05:00 03/27/24 04:00 03/27/24 03:30 03/27/24 03:30 Room Air 03/27/24 02:20 03/27/24 01:00 03/27/24 01:00 Room Air 03/27/24 00:40 03/26/24 23:45 03/26/24 23:41 03/26/24 23:40 Room Air 03/26/24 23:40 03/26/24 23:40 03/26/24 23:40 03/26/24 23:39 03/26/24 23:35 03/26/24 23:33 03/26/24 23:30 03/26/24 23:25 03/26/24 23:24 03/26/24 23:20 03/26/24 23:19 03/26/24 23:15 03/26/24 23:13 03/26/24 23:10 03/26/24 23:10 03/26/24 23:05 03/26/24 23:00 03/26/24 22:59 03/26/24 22:55 03/26/24 22:53 03/26/24 22:50 03/26/24 22:50 03/26/24 22:47 03/26/24 22:45 03/26/24 22:42 03/26/24 22:40 03/26/24 22:40 Room Air 03/26/24 22:40 03/26/24 22:39 03/26/24 22:34 03/26/24 22:30 03/26/24 22:29 03/26/24 22:28 03/26/24 22:25 Room Air 03/26/24 22:24 03/26/24 22:23 03/26/24 22:20 03/26/24 22:19 03/26/24 22:17 03/26/24 22:15 03/26/24 22:14 03/26/24 22:11 03/26/24 22:10 03/26/24 22:09 03/26/24 22:04 03/26/24 21:59 03/26/24 21:57 03/26/24 21:55 03/26/24 21:54 03/26/24 21:51 03/26/24 21:49 03/26/24 21:46 03/26/24 21:44 03/26/24 21:40 Room Air 03/26/24 21:40
[2024-03-27] MEDS: IRON SUCROSE 200 MG in 0.9 % SODIUM CHLORIDE 100 ML IV ONE (09:39)
[2024-03-27] MEDS: SIMETHICONE 80 MG CHEW PO SCH (11:09)
[2024-03-27] MEDS: FERROUS SULFATE 325 MG TAB PO SCH (11:09)
[2024-03-27] MEDS: DOCUSATE SODIUM 100 MG CAP PO SCH (11:09)
[2024-03-27] MEDS: PRENATAL VITAMIN 1 TAB PO SCH (11:09)
[2024-03-27] MEDS: LABETALOL HCL 100 MG TAB PO SCH (11:10)
[2024-03-27] MEDS: KETOROLAC 30 MG/ML VIAL IV PRN (11:11)
[2024-03-27] MEDS: MoRPHine SULFATE PF 1 MG/ML 10 ML AMP/VIAL INT SPINAL ONE (13:08)
[2024-03-27] MEDS: LACTATED RINGER'S 1,000 ML IV SCH (13:08)
[2024-03-27] MEDS: SODIUM CHLORIDE 0.9% 1,000 ML IV SCH (13:08)
[2024-03-27] MEDS: CITRIC ACID/SODIUM CITRATE 15 ML UDC PO SCH (13:09)
[2024-03-27] MEDS ORDERED: ONDANSETRON INJ 2 MG/ML 2 ML VIAL IV PRN (14:53)
[2024-03-27] MEDS ORDERED: PROMETHAZINE HCL 25 MG in SODIUM CHLORIDE 0.9% 50 ML IV PRN (14:53)
[2024-03-27] MEDS ORDERED: diphenhydrAMINE 50 MG/ML VIAL IV PRN (14:53)
[2024-03-27] MEDS ORDERED: diphenhydrAMINE Capsule 25 MG CAP PO PRN (14:53)
[2024-03-27] MEDS: IBUPROFEN 600 MG TAB PO PRN (16:42)
[2024-03-27] MEDS: oxyCODONE/ACETAMINOPHEN 5mg/325mg TAB PO PRN (18:14)
--- NOTE | 2024-03-27 18:44 | Obstetrical Progress Note ---
Date of Service March 27, 2024 Assessment & Plan (1) delivery delivered: c/sec day #1 pt doing well continue day 31 care Subjective Ambulation: ambulating normally Voiding: no voiding problems Passing Gas:: Yes Diet Tolerance:: clear liquids Lochia:: Small Feeding Type:: breast feeding Review of Systems All systems reviewed & are unremarkable except as noted in HPI & below Physical Exam Constitutional WD/WN, vitals as above well developed and well nourished Eyes PERRL, conjunctivae normal, anicteric sclerae ENMT external ear and nose normal, oropharynx normal Neck trachea midline, no thyromegaly Respiratory normal respiratory effort, lungs clear to auscultation Cardiovascular RRR, no murmur, no edema Chest (Breasts) normal inspection/palpation of breasts Gastrointestinal (Abdomen) normal bowel sounds, soft, nontender, no hepatosplenomegaly Musculoskeletal no cyanosis or clubbing, extremities motor strength 5/5 Skin no rashes, warm and dry + incision (Clean,dry and intact) Neurologic patellar DTR's 2+ bilat, sensation intact Psychiatric A+Ox3, euthymic affect Genitourinary normal external appearance Lymphatic no cervical or axillary lymphadenopathy Results & Data Vital Signs (Past 12 Hours) Vital Signs Temp Pulse Resp BP Pulse Ox O2 Del Method 03/27/24 15:44 36.8 C 93 H 18 136/89 99 Room Air 03/27/24 11:10 36.8 C 92 H 19 149/99 H 99 Room Air 03/27/24 09:59 98 H 136/91 03/27/24 09:39 96 H 128/82 03/27/24 07:22 16 97 03/27/24 07:22 36.9 C 91 H 16 145/89 H 97 Room Air
[2024-03-27] MEDS: bisacodyL 5 MG TABEC PO SCH (20:47)
[2024-03-28] MEDS ORDERED: bisacodyL 10 MG SUPP PR PRN
[2024-03-28 06:32] LABS: Hemoglobin 6.7 g/dl (12.0-16.0); Mean Corpuscular Hemoglobin 29.6 pg (25.0-34.0); Mean Corpuscular Hgb Conc 33.5 g/dL (32.0-36.0); Mean Corpuscular Volume 88.5 fL (80.0-100.0); Platelet Count 130 K/uL (130-400); RDW Coefficient of Variation 13.2 % (11.5-14.5); RDW Standard Deviation 42.3 fL (36.4-46.3); Red Blood Count 2.26 M/uL (4.20-5.40); White Blood Count 9.49 K/ul (4.8-10.8)
[2024-03-28 06:46] LABS: Basophils # (auto) 0.02 K/uL (0.00-0.20); Basophils % (auto) 0.2 %; Eosinophils # (auto) 0.08 K/uL (0.00-0.50); Eosinophils % (auto) 0.8 %; Immature Granulocytes # (auto) 0.13 K/uL (0.01-0.20); Immature Granulocytes % (auto) 1.4 %; Lymphocytes # (auto) 1.93 K/uL (1.20-3.40); Lymphocytes % (auto) 20.3 %; Monocytes # (auto) 0.98 K/uL (0.11-0.59); Monocytes % (auto) 10.3 %; Neutrophils # (auto) 6.35 K/uL (1.40-6.50); RBC Morphology Unremarkable
[2024-03-28] MEDS ORDERED: SODIUM CHLORIDE 0.9% 250 ML IV PRN ×2 (09:05→09:24)
--- NOTE | 2024-03-28 09:05 | Obstetrical Progress Note ---
Date of Service March 28, 2024 Assessment & Plan (1) delivery delivered: POD #2 Pt doing well HGB is <7.0 Pt is however asymptomatic Discussed RBC transfusion with pt pt is agreeable Results & Data Vital Signs (Past 12 Hours) Vital Signs Temp Pulse Resp BP Pulse Ox O2 Del Method 03/28/24 04:07 136/85 03/27/24 23:02 36.5 C 98 H 18 122/74 98 Room Air
[2024-03-28] MEDS: ACETAMINOPHEN 500 MG TAB PO ONE (10:11)
[2024-03-28] MEDS: diphenhydrAMINE Capsule 25 MG CAP PO ONE (10:11)
[2024-03-28 19:29] LABS: Hematocrit (blood only) 28.4 % (37.0-47.0); Hemoglobin 9.5 g/dl (12.0-16.0)
[2024-03-29 07:35] LABS: Basophils # (auto) 0.03 K/uL (0.00-0.20); Basophils % (auto) 0.3 %; Eosinophils # (auto) 0.15 K/uL (0.00-0.50); Eosinophils % (auto) 1.3 %; Hematocrit (blood only) 26.2 % (37.0-47.0); Hemoglobin 8.9 g/dl (12.0-16.0); Immature Granulocytes # (auto) 0.12 K/uL (0.01-0.20); Immature Granulocytes % (auto) 1.1 %; Lymphocytes # (auto) 1.47 K/uL (1.20-3.40); Lymphocytes % (auto) 12.9 %; Mean Corpuscular Hemoglobin 29.7 pg (25.0-34.0); Mean Corpuscular Volume 87.3 fL (80.0-100.0); Mean Platelet Volume 12.4 fL (9.4-12.4); Monocytes # (auto) 1.03 K/uL (0.11-0.59); Neutrophils # (auto) 8.61 K/uL (1.40-6.50); Neutrophils % (auto) 75.4 %; Platelet Count 141 K/uL (130-400); RDW Coefficient of Variation 13.8 % (11.5-14.5); RDW Standard Deviation 43.4 fL (36.4-46.3); White Blood Count 11.41 K/ul (4.8-10.8)
--- NOTE | 2024-03-29 08:42 | Obstetrical Progress Note ---
Date of Service March 29, 2024 Assessment & Plan Admission and Anticipated Discharge Date Admission Date: March 26, 2024 Subjective Patient is seen and examined. She feels well, no complaints. Pain is under control with oral meds. Ambulating without dizziness Voiding without difficulty Tolerating regular diet with out N&V Flatus + BM + Bleeding is minimal No fever/ chills/ CP/ SOB/ N&V/ Leg pain Bottle feeding without problems Vital Signs Temp Pulse Pulse Pulse Resp BP BP 03/29/24 08:20 36.7 C 108 H 18 144/94 H 03/29/24 04:00 36.5 C 93 H 18 141/94 H 03/28/24 23:30 36.7 C 106 H 18 137/83 03/28/24 20:15 03/28/24 20:15 36.8 C 111 H 18 150/93 H 03/28/24 14:45 36.7 C 114 H 18 137/87 03/28/24 14:45 36.7 C 114 H 18 137/87 03/28/24 14:15 36.5 C 113 H 16 143/87 H 03/28/24 13:45 36.6 C 119 H 18 132/85 03/28/24 13:30 36.8 C 121 H 18 117/78 03/28/24 13:07 36.7 C 119 H 18 123/76 03/28/24 11:40 36.7 C 102 H 18 143/83 H 03/28/24 11:10 36.7 C 106 H 18 133/81 03/28/24 10:40 36.8 C 112 H 18 138/78 03/28/24 10:25 36.7 C 112 H 18 132/79 03/28/24 10:08 36.7 C 113 H 16 123/79 03/28/24 09:53 36.7 C 113 H 16 123/79 Pulse Ox O2 Del Method 03/29/24 08:20 99 Room Air 03/29/24 04:00 99 Room Air 03/28/24 23:30 99 Room Air 03/28/24 20:15 Room Air 03/28/24 20:15 99 Room Air 03/28/24 14:45 99 Room Air 03/28/24 14:45 99 03/28/24 14:15 100 03/28/24 13:45 99 03/28/24 13:30 99 03/28/24 13:07 99 03/28/24 11:40 100 03/28/24 11:10 100 03/28/24 10:40 99 03/28/24 10:25 99 03/28/24 10:08 99 03/28/24 09:53 99 Intake and Output 03/28/24 03/29/24 03/29/24 22:59 06:59 14:59 Intake Total 310 / 620 Balance 310 / 620 Intake: Intake (Blood Product) Amt 310 / 620 Packed Cells, Leukoreduced 310 / 310 Unit [id number] Lab Results 03/26/24 03/26/24 03/27/24 Range/Units 19:58 20:49 06:09 WBC 10.05 17.12 H (4.8-10.8) K/ul RBC 3.68 L 2.52 L (4.20-5.40) M/uL Hgb 11.0 L 7.5 L D (12.0-16.0) g/dl Hct 31.8 L 21.7 L (37.0-47.0) % MCV 86.4 86.1 (80.0-100.0) fL MCH 29.9 29.8 (25.0-34.0) pg MCHC 34.6 34.6 (32.0-36.0) g/dL RDW Std Deviation 39.8 38.7 (36.4-46.3) fL RDW Coeff of Nathaniel 12.8 12.3 (11.5-14.5) % Plt Count 184 123 L (130-400) K/uL MPV 13.1 H 12.6 H (9.4-12.4) fL Immature Gran % (Auto) 1.1 0.8 % Neut % (Auto) 64.8 84.3 % Lymph % (Auto) 21.6 7.7 % [place] % (Auto) 11.6 7.0 % Eos % (Auto) 0.5 0.1 % Baso % (Auto) 0.4 0.1 % Neut # (Auto) 6.51 H 14.45 H (1.40-6.50) K/uL Lymph # (Auto) 2.17 1.31 (1.20-3.40) K/uL [place] # (Auto) 1.17 H 1.19 H (0.11-0.59) K/uL Eos # (Auto) 0.05 0.01 (0.00-0.50) K/uL Baso # (Auto) 0.04 0.02 (0.00-0.20) K/uL Immature Gran # (Auto) 0.11 0.14 (0.01-0.20) K/uL RBC Morphology Polychromasia 1+ PT 10.2 (9.0-12.0) Seconds INR 0.9 (0.9-1.1) Fibrinogen 298 (184-400) mg/dl Cord VBG pH < 7.00 L (7.20-7.44) Cord VBG pCO2 90 H (30.4-57.2) mmHg Cord VBG pO2 < 20 (14.1-43.3) mmHg Cord VBG HCO3 Not Reportable Cord VBG Base Excess Not Reportable Cord VBG O2 Sat < 60.0 (<68) % Blood Gas Comments INFANT A RPR Nonreactive (Nonreactive) Blood Type A Positive Antibody Screen NEGATIVE Crossmatch See Detail 03/28/24 03/28/24 03/29/24 Range/Units 05:53 19:17 07:13 WBC 9.49 11.41 H (4.8-10.8) K/ul RBC 2.26 L 3.00 L (4.20-5.40) M/uL Hgb 6.7 L* 9.5 L 8.9 L (12.0-16.0) g/dl Hct 20.0 L* 28.4 L 26.2 L (37.0-47.0) % MCV 88.5 87.3 (80.0-100.0) fL MCH 29.6 29.7 (25.0-34.0) pg MCHC 33.5 34.0 (32.0-36.0) g/dL RDW Std Deviation 42.3 43.4 (36.4-46.3) fL RDW Coeff of Nathaniel 13.2 13.8 (11.5-14.5) % Plt Count 130 141 (130-400) K/uL MPV 13.0 H 12.4 (9.4-12.4) fL Immature Gran % (Auto) 1.4 1.1 % Neut % (Auto) 67.0 75.4 % Lymph % (Auto) 20.3 12.9 % [place] % (Auto) 10.3 9.0 % Eos % (Auto) 0.8 1.3 % Baso % (Auto) 0.2 0.3 % Neut # (Auto) 6.35 8.61 H (1.40-6.50) K/uL Lymph # (Auto) 1.93 1.47 (1.20-3.40) K/uL [place] # (Auto) 0.98 H 1.03 H (0.11-0.59) K/uL Eos # (Auto) 0.08 0.15 (0.00-0.50) K/uL Baso # (Auto) 0.02 0.03 (0.00-0.20) K/uL Immature Gran # (Auto) 0.13 0.12 (0.01-0.20) K/uL RBC Morphology Unremarkable Polychromasia PT (9.0-12.0) Seconds INR (0.9-1.1) Fibrinogen (184-400) mg/dl Cord VBG pH (7.20-7.44) Cord VBG pCO2 (30.4-57.2) mmHg Cord VBG pO2 (14.1-43.3) mmHg Cord VBG HCO3 Cord VBG Base Excess Cord VBG O2 Sat (<68) % Blood Gas Comments RPR (Nonreactive) Blood Type Antibody Screen Crossmatch PE: General: Alert, orientedx3, NAD CVS: S1S2 RRR Lungs; CTAB Abd: soft, NT, ND, BS+, fundus firm, below Umbilicus Incision: Clean, dry, intact Perineum intact, Lochia rubra minimal Ext; NT, no edema AP: 28 yo s/p C Section for abruptio placenta, pod# 4, s/p 2 units of PRBBC VSS Afebrile doing well On Labetalol, last BP was before her medication Continue routine postop care Encourage ambulation, PO intake All questions were answered D/C home, f/u in office Results & Data Vital Signs (Past 12 Hours) Vital Signs Temp Pulse Pulse Resp BP Pulse Ox O2 Del Method 03/29/24 08:20 36.7 C 108 H 18 144/94 H 99 Room Air 03/29/24 04:00 36.5 C 93 H 18 141/94 H 99 Room Air 03/28/24 23:30 36.7 C 106 H 18 137/83 99 Room Air
== END 2024-03-29 14:05 | disposition home health service (06) | DRG 788 ==
LOC: OPB 19:18 → 4S1 19:19 → 4E2 03-27 00:38